=== PATIENT | male | born 1945 | race Caucasian/White ===

== ENCOUNTER 2023-12-22 16:37 | Emergency (ER) | payer OTHER, SELFPAY ==
[2023-12-22 16:39] VITALS: BP 96/55
[2023-12-22 17:42] VITALS: BP 129/79
[2023-12-22 18:10] LABS: % Basophils 0.8 % (0-2); % Eosinophils 1.8 % (0-6); % Immature Granulocytes 0.4 % (0-0.5); % Lymphocytes 19.2 % (20.5-51.1); % Monocytes 10.3 % (1.7-9.3); % Neutrophils 67.5 % (42.2-75.2); Absolute Basophils 0.1 10^3/uL (0-0.2); Absolute Eosinophils 0.1 10^3/uL (0-0.7); Absolute Lymphocytes 1.4 10^3/uL (1.2-3.4); Absolute Monocytes 0.8 10^3/uL (0.1-0.6); Hematocrit 46.9 % (39.0-52.0); Mean Corp Hgb Conc. 34.1 g/dL (33.0-37.0); Mean Corpuscular Hgb 31.1 pg (27.0-31.0); Mean Corpuscular Volume 91.2 fL (80.0-94.0); Mean Platelet Volume 9.1 fL (7.4-10.4); Nucleated Red Blood Cells % 0 % (-); Platelet Count 227 10^3/uL (130-400); Red Blood Cell Count 5.14 10^6/uL (4.70-6.10); Red Cell Dist. Width 13.9 % (11.5-14.5); White Blood Cell Count 7.4 10^3/uL (4.8-10.8)
[2023-12-22 18:22] LABS: ALT (SGPT) 29 U/L (0-50); AST (SGOT) 46 U/L (17-59); Albumin 4.3 g/dl (3.5-5.0); Alkaline Phosphatase 76 U/L (38-126); Blood Urea Nitrogen 13 mg/dl (9-20); Calcium 10.4 mg/dl (8.4-10.2); Carbon Dioxide 22 mmol/L (22-30); Chloride 105 mmol/L (98-107); Glucose 88 mg/dl (70-99); Potassium 4.3 mmol/L (3.5-5.1); Sodium 134 mmol/L (135-145); Total Bilirubin 0.6 mg/dl (0.2-1.3); Total Protein 7.1 g/dl (6.3-8.2); eGFR > 60.00
[2023-12-22 18:35] LABS: Troponin I < 0.012 ng/ml
[2023-12-22 19:05] VITALS: BP 151/83
[2023-12-22 19:07] VITALS: BP 135/95
--- NOTE | 2023-12-22 19:08 | ED.GENMED ---
History of Present Illness
General
Chief Complaint: Dizziness
Source: patient
Exam Limitations: none
Time Seen by Provider: 12/22/23 17:34
Nursing documentation reviewed up to this point in time: agreed with
Travel History
Have you had any contact with someone who has COVID-19?: No
Do you have any symptoms of coronavirus? Fever > 100 degrees, chills, cough, shortness of breath, sore throat, loss of taste or smell, muscle aches, or headache?: No
History of Present Illness
History of Present Illness:
Patient states he had a sudden onset of dizziness. 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 States he had not eaten today, had little to drink. Did have 1 beer approx 30 minutes prior to feeling dizzy. Symptoms lasted approx
10 minutes. Denies any associated chest pain/pressure, SOB. Brought self to ED for eval. He remains asymptomatic. Incident occurred this afternoonl
Past History
Past History
ED Past Medical History: None; Negative CAD, HTN, Hypercholesterolemia, IDDM, NIDDM or AL
ED Past Surgical History: Other (perirectal abscess)
Social History
Tobacco: Smoker
Alcohol: Occasional
Drug: None
Living: with family
Review of Systems
Review of Systems
Allergies reviewed?: Yes
All Other Systems: ROS reviewed and negative except as documented in HPI and ROS
Constitutional: Reports no symptoms
EENT: Reports no symptoms
Respiratory: Reports no symptoms
Cardiac: Reports no symptoms
ABD/GI: Reports no symptoms
: Reports no symptoms
Musculoskeletal: Reports no symptoms
Skin: Reports no symptoms
Neurological: Reports dizzy
Psychiatric: Reports no symptoms
Phy Exam
General Physical Exam
General Presentation: well appearing and no apparent distress
General age: appears stated age
General Skin: warm and dry
General Habitus: normal
General Mental: alert
Cardiovascular Exam
Cardiovascular Exam: regular rate/rhythm and no edema
Pulmonary Exam
Pulmonary Exam: lungs clear and no respiratory distress
Neurological Exam
Neurological Exam: alert, oriented x3, CN II-XII intact, no motor deficits, no sensory deficits, speech normal and normal gait
Musculoskeletal Exam
Musculoskeletal Exam: full ROM and neuro vasc intact
Skin Exam
Skin Exam: normal color, warm/dry and no rash
Psychiatric Exam
Psychiatric Exam: normal mood/affect
Course
Orders/Labs/Results
Orders:
Orders
12/22/23 16:40
EKG [Electrocardiogram (*1)] Urgent
Reason for Study: Vertigo / Dizzy
EKG- Treatment ONCE
12/22/23 17:37
Urinalysis Reflex To Culture Urgent
Date Specimen was Collected: 12/22/23
Time Specimen was Collected: 17:43
12/22/23 17:56
Complete Blood Count/With Diff Urgent
Comprehensive Metabolic Panel Urgent
Troponin I Urgent
Abnormal Lab Results
12/22/23
17:56
MCH 31.1 H pg
(27.0-31.0)
Absolute Monos (auto) 0.8 H 10^3/uL
(0.1-0.6)
Lymphocytes % 19.2 L %
(20.5-51.1)
Monocytes % 10.3 H %
(1.7-9.3)
Sodium 134 L mmol/L
(135-145)
Calcium 10.4 H mg/dl
(8.4-10.2)
12/22/23 17:56
12/22/23 17:56
Vital Signs
Initial and Last Documented VS:
Initial Vital Signs
Temp Pulse Resp BP Pulse Ox
97.8 F 69 17 96/55 97
12/22/23 16:39 12/22/23 16:39 12/22/23 16:39 12/22/23 16:39 12/22/23 16:39
Last Documented Vital Signs
Temp Pulse Resp BP Pulse Ox
97.8 F 70 18 129/79 97
12/22/23 16:39 12/22/23 19:00 12/22/23 19:00 12/22/23 17:42 12/22/23 19:00
*Critical Care Note
Total Time (30-74mins, 75-104mins- exclusive of procedures): Not Applicable
Update Note
Update Note:
Patient remains asymtomatic. Labs reviewed. EKG NSR, Troponin neg. INcident occurred >3hrs from troponin draw. He admits to not eating today, drinking little. Had 1 beer after his performance. Doubtful for cardiac cause. Will discharge home
and he will follow up with his PCP. Given instructions on s/s to return to ED and he is agreeable to plan.
ED Attending Note
-
Portions of this chart may have been created with voice recognition software.� Occasional wrong word or��sound alike� substitutions may have occurred due to the inherent limitations of voice recognition software.
Discharge Plan
Departure
Patient Disposition: Home (Routine Discharge)
Date of Disposition: 12/22/23
Time of Disposition: 19:15
Patient with high blood pressure during this ER visit?: No
Condition: Good
Covid-19: Not Applicable
Discharge Problem:
Dizziness
Instructions: Dizziness
Prescriptions:
No Action
nicotine 14 MG patch 24 hour
14 mg transdermal DAILY Qty: 14 0RF
metoprolol succinate 50 MG tablet extended release 24 hr
50 mg PO BID Qty: 60 5RF
clopidogrel 75 MG tablet
75 mg PO DAILY Qty: 30 11RF
aspirin 81 MG tablet,chewable
81 mg PO DAILY 0RF
lisinopril 5 MG tablet
5 mg PO DAILY Qty: 30 5RF
Referrals:
Hiral Hale MD [Family Provider] - Tomorrow
Activity Restrictions/Additional Instructions:
Return to the emergency department immediately for return of your symptoms or for any further concerns.
Interventions
Interventions:
*Risk Screen - Suicide Last Done: 12/22/23 18:32
*General Assessment Last Done: 12/22/23 18:32
ED- Fall Risk Assessment Last Done: 12/22/23 17:56
ED- Neurological Assessment Last Done: 12/22/23 17:56
ED- Cardiac Assessment Last Done: 12/22/23 17:56
ED Swallowing Screen Last Done: 12/22/23 17:56
Discharge Date and Time
Print Language: BANGLADESHI
[2023-12-22 19:09] VITALS: BP 133/88
[2023-12-22 19:13] VITALS: BP 133/88; BP 135/95; BP 151/83; PULSE 72; PULSE 73; PULSE 74
== END 2023-12-22 19:33 | disposition home or self-care (01) ==
LOC: EMR 16:37
PROVIDERS: Nurse Practitioner; EMERGENCY PHYSICIAN Emergency Medicine; FAMILY PHYSICIAN Emergency Medicine
DX: R42 Dizziness and giddiness (principal); F17.200 Nicotine dependence, unspecified, uncomplicated
CPT/HCPCS: 99284; 80053; 84484; 85025; 93005

== ENCOUNTER → 2024-01-06 08:40 | Outpatient (REF) | payer OTHER, SELFPAY | LOC: RAD 08:40 | PROVIDERS: ATTENDING PHYSICIAN Emergency Medicine | DX: M54.2 Cervicalgia (principal) | CPT/HCPCS: 72052 ==